=== PATIENT | male | born 1950 | race African-American/Black ===

== ENCOUNTER 2017-08-23 09:02 | Emergency (ER) | payer OTHER ==
[2017-08-23 09:10] VITALS: BP 115/68; PULSE 75; TEMP 98; BMI 31.0
[2017-08-23] MEDS ORDERED: LORATADINE 10 MG TABLET PO ONE (10:05)
[2017-08-23] MEDS ORDERED: LORATADINE 10 MG TABLET ONE (10:10)
--- NOTE | 2017-08-23 10:13 | PDOC ---
History of Present Illness - General Chief Complaint: Cold Symptoms Stated Complaint: COUGH Time Seen by Provider: 08/23/17 09:59 History Source: Patient Exam Limitations: No Limitations - History of Present Illness Initial Comments: 08/23/17 11:07 66 yr male with c/o cough , runny nose sneezing for one week. pt has no fever no chills no chest pain or SOB. Pt was prescribed Zpack is on day 4. Past History - Past Medical History Allergies/Adverse Reactions: Allergies Allergy/AdvReac Type Severity Reaction Status Date / Time No Known Allergies Allergy Verified 08/23/17 09:06 Home Medications: Ambulatory Orders Atorvastatin Ca [Lipitor] 40 mg PO DAILY 02/19/13 Fenofibrate 160 mg PO DAILY 02/19/13 [place]-3 Acid Ethyl Esters [Lovaza -] 1,000 mg PO BID 02/19/13 Saxagliptin HCl [Onglyza] 5 mg PO DAILY 02/19/13 Aspirin [ASA -] 81 mg PO DAILY 04/15/16 Pantoprazole Sodium [Protonix -] 40 mg PO BID 04/15/16 Acetaminophen [Tylenol .Regular Strength -] 650 mg PO Q4H PRN #0 tablet Amox-Tr/K Cl [Augmentin 875-125mg Tablet -] 1 tab PO BID@0800,1730 #12 tablet Docusate Sodium [Colace -] 300 mg PO HS capsule 04/18/16 Hydrocortisone 2.5% Topical Cr [Anusol-Hc -] 1 applic SD BID #45 grams 04/18/16 Polyethylene Glycol 3350 [Miralax 119 gm Btl -] 17 gm PO BID bottle 04/18/16 Fluticasone Prop 0.05% Nasal [Flonase -] 1 - 2 spray NS DAILY #1 spray.pump Loratadine [Claritin -] 10 mg PO DAILY #14 tablet 08/23/17 Cardiac Disorders: Yes COPD: No DVT: No Diabetes: Yes HTN: Yes Hypercholesterolemia: Yes Kidney Stones: Yes - Surgical History Cardiac Surgery: Yes (STENTS, VALVE REPLACEMENT) - Immunization History Immunization Up to Date: Yes - Suicide/Smoking/Psychosocial Hx Smoking Status: No Smoking History: Never smoked Have you smoked in the past 12 months: No Number of Cigarettes Smoked Daily: 0 If you are a former smoker, when did you quit?: 2004 Information on smoking cessation initiated: No Hx Alcohol Use: No Drug/Substance Use Hx: No Substance Use Type: None Hx Substance Use Treatment: No *Physical Exam - Vital Signs Last Vital Signs Temp Pulse Resp BP Pulse Ox 98.0 F 75 17 115/68 99 08/23/17 09:06 08/23/17 09:06 08/23/17 09:06 08/23/17 09:06 08/23/17 09:06 - Physical Exam General Appearance: Yes: Nourished, Appropriately Dressed HEENT: positive: EOMI, MONA, Pharyngeal Erythema, Nasal Congestion, Rhinorrhea. negative: Sinus Tenderness Neck: positive: Supple. negative: Lymphadenopathy (R), Lymphadenopathy (L) Respiratory/Chest: positive: Lungs Clear, Normal Breath Sounds. negative: Respiratory Distress, Decreased Breath Sounds, Crackles, Rhonchi, Wheezing Cardiovascular: positive: Regular Rhythm, Regular Rate Gastrointestinal/Abdominal: positive: Normal Bowel Sounds, Soft, Other (obese ) Lymphatic: negative: Adenopathy Musculoskeletal: positive: Normal Inspection Extremity: positive: Normal Capillary Refill, Normal Inspection, Normal Range of Motion Integumentary: positive: Normal Color, Dry, Warm ED Treatment Course - LABORATORY CBC & Chemistry Diagram: 08/23/17 10:00 08/23/17 10:13 - RADIOLOGY Radiology Studies Ordered: Category Date Time Status CHEST PA & LAT [RAD] Stat Radiology 08/23/17 10:13 Ordered - Medications Given in the ED: ED Medications Discontinued Medications Generic Name Dose Route Start Last Admin Trade Name Freq PRN Reason Stop Dose Admin Loratadine 10 mg 08/23/17 10:05 08/23/17 10:09 Claritin - PO 08/23/17 10:06 10 mg ONCE ONE Administration Medical Decision Making - Medical Decision Making 08/23/17 11:23 cc: runny nose, nasal congestion, sore throat, headache no fever on day 4 of Zpack will get CXR to r/o pneumonia, labs and strep culture pt is non toxic well appearing with runny nose, sneezing congestion vitals are stable 08/23/17 11:25 results discussed with pt and his no abnormal findings i have discussed that follow up with PCP in 1-2 days is important for continued care pt agrees and will follow up *DC/Admit/Observation/Transfer Diagnosis at time of Disposition: Viral upper respiratory illness - Discharge Dispostion Disposition: HOME Condition at time of disposition: Good - Prescriptions Prescriptions: Fluticasone Prop 0.05% Nasal [Flonase -] 1 - 2 spray NS DAILY #1 spray.pump Loratadine [Claritin -] 10 mg PO DAILY #14 tablet - Referrals Referrals: Markell Sanchez MD [Primary Care Provider] - - Patient Instructions Printed Discharge Instructions: DI for Viral Upper Respiratory Infection -- Adult Additional Instructions: drink pleanty of fluids and rest at home use flonase nasal spray as directed take a daily antihistamine such as claritin , theodora or zyrtec for sneezing, runny nose follow with your doctor tomorrow or Sunday for follow up Return to ER if any worsening symptoms - Post Discharge Activity
[2017-08-23 10:30] LABS: BASO % 0.9 % (0-2.0); EOS % 6.9 % (0-4.5); HEMATOCRIT 40.5 % (35.4-49); HEMOGLOBIN 12.9 GM/dL (11.7-16.9); LYMPH % 17.4 % (8-40); MCH 25.3 pg (25.7-33.7); MCHC 31.8 g/dl (32.0-35.9); MEAN CELL VOLUME 79.5 fl (80-96); MEAN PLT VOLUME 7.7 fl (7.5-11.1); MONO % 10.3 % (3.8-10.2); NEUT % 64.5 % (42.8-82.8); PLATELET COUNT 263 K/MM3 (134-434); RDW 14.8 % (11.9-15.9); WHITE BLOOD COUNT 6.9 K/mm3 (4.0-10.0)
[2017-08-23 10:52] LABS: ALBUMIN 4.2 g/dl (3.4-5.0); ANION GAP 8 (8-16); BLOOD UREA NITROGEN 15 mg/dL (7-18); CALCIUM 8.9 mg/dL (8.5-10.1); CHLORIDE 109 mmol/L (98-107); CO2 22 mmol/L (21-32); CREATININE 1.4 mg/dL (0.7-1.3); GLUCOSE,RANDOM 90 mg/dL (74-106); POTASSIUM 4.6 mmol/L (3.5-5.1); SGOT/AST 37 U/L (15-37); SGPT/ALT 34 U/L (12-78); SODIUM 139 mmol/L (136-145)
[2017-08-23 11:02] LABS: ALK PHOS 42 U/L (45-117); BILIRUBIN,TOTAL 0.4 mg/dL (0.2-1.0); TOT PROT 7.9 g/dl (6.4-8.2)
== END 2017-08-23 11:16 | disposition home or self-care (01) ==
LOC: JERFT 09:02
DX: J06.9 Acute upper respiratory infection, unspecified (principal); B97.89 Other viral agents as the cause of diseases classified elsewhere
CPT/HCPCS: 36415; 71046-TC-FY; 80053; 85025; 87070; 87430; 99281-25